=== PATIENT | female | born 1995 ===

== ENCOUNTER 2017-07-03 18:47 | Emergency (ER) | payer MEDICAID, OTHER ==
[2017-07-03 18:56] VITALS: BP 98/61; PULSE 63; RESP 18; TEMP 98.4; O2SAT 100
--- NOTE | 2017-07-03 19:56 | ED PDOC ---
HPI:Nausea, Vomiting, Diarrhea Time Seen by Provider: 07/03/17 19:17 Chief Complaint (Nursing): GI Problem Chief Complaint (Provider): nausea History Per: Patient History/Exam Limitations: no limitations Onset/Duration Of Symptoms: Days (1 week) Current Symptoms Are (Timing): Intermittent Episodes (worse in the morning) Quality Of Discomfort: denies: "Pain" Associated Symptoms: Vomiting (occasionally but tolerating PO), Loss Of Appetite Exacerbating Factors: Food Alleviating Factors: None Additional Complaint(s): Took test at home twice that was positive. Wants to confirm. PMD: None Past Medical History Reviewed: Historical Data, Nursing Documentation, Vital Signs Vital Signs: Last Vital Signs Temp 98.4 F 07/03/17 18:53 Pulse 63 07/03/17 18:53 Resp 18 07/03/17 18:53 BP 98/61 L 07/03/17 18:53 Pulse Ox 100 07/03/17 18:53 - Medical History PMH: No Chronic Diseases - Surgical History Surgical History: No Surg Hx - Family History Family History: States: No Known Family Hx - Social History Current smoker - smoking cessation education provided: No - Home Medications Home Medications: Ambulatory Orders Medication Instructions Recorded Multivit/Folic Acid/I 1 tab PO DAILY #100 tab 07/03/17 [ Plus] - Allergies Allergies/Adverse Reactions: Allergies Allergy/AdvReac Type Severity Reaction Status Date / Time No Known Allergies Allergy Verified 07/03/17 18:52 Review of Systems ROS Statement: Except As Marked, All Systems Reviewed And Found Negative (and as per HPI) Constitutional: Positive for: Weakness, Malaise Gastrointestinal: Positive for: Nausea, Vomiting. Negative for: Abdominal Pain Genitourinary Female: Negative for: Dysuria, Frequency, Vaginal Discharge, Vaginal Bleeding, Pelvic Pain Physical Exam - Reviewed Nursing Documentation Reviewed: Yes Vital Signs Reviewed: Yes - Physical Exam Appears: Positive for: Well, No Acute Distress Head Exam: Positive for: ATRAUMATIC, NORMOCEPHALIC Skin: Positive for: Warm, Dry Eye Exam: Positive for: EOMI, PERRL ENT: Negative for: Pharyngeal Erythema, Tonsillar Exudate Neck: Positive for: Painless ROM, Supple Cardiovascular/Chest: Positive for: Regular Rate, Rhythm. Negative for: Murmur Respiratory: Positive for: Normal Breath Sounds. Negative for: Respiratory Distress Gastrointestinal/Abdominal: Positive for: Bowel Sounds, Soft. Negative for: Tenderness, Mass, Distended, Guarding, Rebound Back: Positive for: Normal Inspection. Negative for: L CVA Tenderness, R CVA Tenderness Extremity: Positive for: Normal ROM. Negative for: Deformity Lymphatic: Negative for: Adenopathy Neurologic/Psych: Positive for: Alert. Negative for: Motor/Sensory Deficits - ECG O2 Sat by Pulse Oximetry: 100 Disposition - Clinical Impression Clinical Impression: , Morning sickness Counseled Patient/Family Regarding: Studies Performed, Diagnosis, Need For Followup, Rx Given - Disposition [facility] ([facility] EN 1-2 SEMANAS) Disposition: Routine/Home Disposition Time: 19:55 Condition: GOOD Prescriptions: Multivit/Folic Acid/I [ Plus] 1 tab PO DAILY #100 tab Instructions: Morning Sickness (ED), (ED) Print Language: ERITREAN
== END 2017-07-03 20:07 | disposition home or self-care (01) ==
LOC: H.ER 18:47
DX: O21.0 Mild hyperemesis gravidarum (principal)

== ENCOUNTER 2017-10-18 21:59 | Emergency (ER) | payer SELFPAY ==
[2017-10-18 22:15] VITALS: RESP 16
[2017-10-18] MEDS ORDERED: Acetaminophen 325 MG/10.15 ML PO ONE (22:56)
[2017-10-18] MEDS ORDERED: Acetaminophen 160 mg/5 ml UD ONE (23:06)
[2017-10-18] MEDS: Acetaminophen 160 mg/5 ml UD PO ONE (23:11)
[2017-10-18] MEDS: Sodium Chloride 0.9% 1,000 ML IV STA (23:11)
--- NOTE | 2017-10-18 23:23 | ED PDOC ---
HPI: Headache Time Seen by Provider: 10/18/17 22:46 Chief Complaint (Nursing): Headache Chief Complaint (Provider): Headache History Per: Patient History/Exam Limitations: no limitations Onset/Duration Of Symptoms: Hrs (x4) Current Symptoms Are (Timing): Still Present Additional Complaint(s): 22 year old, 20 weeks female, with no significant past medical history , who presents to the ED complaining of a headache and nausea x4 hours. Patient states she took Tylenol 2 hours ago without relief. Denies vomiting photophobia , thunderclap headache, neck pain, and neck stiffness. Patient states headache is not the worst of her life. Also denies any vaginal bleeding, abdominal pain, or vaginal discharge. PMD: [facility] Past Medical History Reviewed: Historical Data, Nursing Documentation, Vital Signs Vital Signs: Last Vital Signs Temp 98.4 F 10/18/17 22:12 Pulse 86 10/18/17 22:12 Resp 16 10/18/17 22:12 BP 95/60 L 10/18/17 22:12 Pulse Ox 100 10/18/17 22:12 - Medical History PMH: No Chronic Diseases - Surgical History Surgical History: No Surg Hx - Family History Family History: States: Unknown Family Hx - Home Medications Home Medications: Ambulatory Orders Medication Instructions Recorded Multivit/Folic Acid/I 1 tab PO DAILY #100 tab 07/03/17 [ Plus] Doxylamine/Pyridoxine HCl (B6) 1 each PO DAILY #20 tablet. 10/19/17 [Malachi Navas 10-10 mg Tablet] - Allergies Allergies/Adverse Reactions: Allergies Allergy/AdvReac Type Severity Reaction Status Date / Time No Known Allergies Allergy Verified 10/18/17 22:12 Review of Systems ROS Statement: Except As Marked, All Systems Reviewed And Found Negative Eyes: Negative for: Other (Photophobia) Gastrointestinal: Positive for: Nausea. Negative for: Vomiting, Abdominal Pain Genitourinary Female: Negative for: Vaginal Discharge, Vaginal Bleeding Musculoskeletal: Negative for: Neck Pain (or stiffness) Neurological: Positive for: Headache (not thunderclap or worst of life) Physical Exam - Reviewed Nursing Documentation Reviewed: Yes Vital Signs Reviewed: Yes - Physical Exam Appears: Positive for: Well, Non-toxic, No Acute Distress Head Exam: Positive for: ATRAUMATIC, NORMAL INSPECTION, NORMOCEPHALIC Skin: Positive for: Normal Color, Warm, Dry. Negative for: Rash Eye Exam: Positive for: EOMI, Normal appearance, PERRL Neck: Positive for: Normal, Painless ROM, Supple Cardiovascular/Chest: Positive for: Regular Rate, Rhythm. Negative for: Murmur Respiratory: Positive for: Normal Breath Sounds. Negative for: Respiratory Distress Gastrointestinal/Abdominal: Positive for: Normal Exam, Bowel Sounds, Soft. Negative for: Tenderness Pelvic Exam: Positive for: Other (Gravid uterus) Back: Positive for: Normal Inspection. Negative for: L CVA Tenderness, R CVA Tenderness, Vertebral Tenderness Extremity: Positive for: Normal ROM. 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 Negative for: Motor/Sensory Deficits, Cerebellar Tests, Gait, Aphasia, Facial Droop - ECG O2 Sat by Pulse Oximetry: 100 (RA) Pulse Ox Interpretation: Normal Medical Decision Making Medical Decision Making: Time: 22:50 Initial Impression: Non pathological headache in Plan: --Sodium Chloride 0.9% 1,000 mls/hr --Reglan 10 mg IVP --Tylenol 500 mg PO --Reevaluation Time: 01:56 --Upon provider evaluation patient is medically stable, and requires no further treatment in the ED at this time. Patient will be discharged with Rx for Diclegis. Counseling was provided and all questions were answered regarding diagnosis and need for [facility] with [facility]. There is agreement to discharge plan. Return if symptoms persist or worsen. Scribe Attestation: Documented by Girma Larkin, acting as a scribe for Diogenes Leung MD. Provider Scribe Attestation: All medical record entries made by the Scribe were at my direction and personally dictated by me. I have reviewed the chart and agree that the record accurately reflects my personal performance of the history, physical exam, medical decision making, and the department course for this patient. I have also personally directed, reviewed, and agree with the discharge instructions and disposition. Disposition - Clinical Impression Clinical Impression: Vomiting or nausea of , Headache - Patient ED Disposition Is Patient to be Admitted: No Counseled Patient/Family Regarding: Diagnosis, Need For Followup, Rx Given - Disposition [facility]errals: [facility]] Disposition: Routine/Home Disposition Time: 01:56 Condition: STABLE Prescriptions: Doxylamine/Pyridoxine HCl (B6) [Malachi Navas 10-10 mg Tablet] 1 each PO DAILY # 20 tablet. Instructions: Acute Headache (ED) Forms: [facility] (Kenyan) Print Language: UKRAINIAN
[2017-10-19 03:05] VITALS: BP 114/66; PULSE 81; TEMP 98.2; O2SAT 99
== END 2017-10-19 02:00 | disposition home or self-care (01) ==
LOC: H.ER 21:59
DX: O21.9 Vomiting of pregnancy, unspecified (principal); Z3A.20 20 weeks gestation of pregnancy; R51 Headache
CPT/HCPCS: 96361; 96374; 99285; J2765; J7040